=== PATIENT | male | born 1960 | race Caucasian/White ===

== ENCOUNTER 2019-08-24 09:13 | Outpatient (CLI) | payer BC, SELFPAY ==
--- NOTE | 2019-08-24 09:25 | MR_ITS ---
WS: [id number] MRI LEFT SHOULDER HISTORY: LEFT SHOULDER PAIN, TENDONITIS COMPARISON: None available. TECHNIQUE: Multiplanar sequences of the shoulder joint are submitted. Mild AC joint arthritis. Slight encroachment upon the myotendinous insertion. There is fluid in the s ubacromial and subdeltoid bursa. There are tiny loose bodies noted within the joint effusion and the bursa. Complete tear of the supraspinatus tendon with retraction. Retraction is to the level of the superior humeral head and humeral head is high riding. Mild atrophy without edema supraspinatus muscle. Infra spinatus tendon and the subscapularis tendons are intact. Increased signal in the distal subscapulari s tendon from tendinopathy. There is extensive distention of the subscapularis recess. Thinning of the cortex over the humeral head. Biceps tendon is not identified in the bicipital groove . Mild narrowing of the glenohumeral joint. Irregularity involving the superior labrum and there is a subchondral cyst in the superior glenoid. No marrow edema or fracture. MR/MR shoulder LT wo con* [id number] IMPRESSION: 1. Complete tear supraspinatus tendon with retraction to the superior humeral head. 2. Mild atrophy supraspinatus muscle. 3. Distal subscapularis tendinopathy. 4. Torn retracted biceps tendon. The biceps tendon is not identified in the bi cipital groove. 5. Large joint effusion and bursal distention throughout the shoulder. 6. Mild AC joint and glenohumeral joint arthritis.
== END 2019-08-24 09:14 | disposition home or self-care (01) ==
LOC: RADWPI 09:19
PROVIDERS: PCP Family Medicine; Visit Provider Family Medicine
DX: M75.122 Complete rotator cuff tear or rupture of left shoulder, not specified as traumatic (principal); M25.412 Effusion, left shoulder; M19.012 Primary osteoarthritis, left shoulder; M25.512 Pain in left shoulder; M77.9 Enthesopathy, unspecified
CPT/HCPCS: 73221

== ENCOUNTER → 2019-09-14 11:04 | Outpatient (BNVA) | payer BC, SELFPAY | PROVIDERS: PCP Family Medicine; Referring Provider Family Medicine; Visit Provider Specialist | DX: M25.512 Pain in left shoulder (principal) | CPT/HCPCS: 73030 ==

== ENCOUNTER 2019-09-16 10:24 | Outpatient (RCR) | payer BC, SELFPAY | END 2019-09-17 23:59 | disposition home or self-care (01) | LOC: SPT 10:24 | PROVIDERS: PCP Family Medicine; Referring Provider Specialist; Visit Provider Specialist | DX: R20.0 Anesthesia of skin; R20.2 Paresthesia of skin; Z87.891 Personal history of nicotine dependence; M75.102 Unspecified rotator cuff tear or rupture of left shoulder, not specified as traumatic | CPT/HCPCS: 95908; 97161 ==

== ENCOUNTER 2019-09-18 06:00 | Outpatient (RCR) | payer BC, SELFPAY | END 2019-10-18 23:59 | disposition home or self-care (01) | LOC: SPT 06:00 | PROVIDERS: PCP Family Medicine; Referring Provider Specialist; Visit Provider Specialist | DX: M75.102 Unspecified rotator cuff tear or rupture of left shoulder, not specified as traumatic (principal) | CPT/HCPCS: 97110 ==

== ENCOUNTER → 2019-09-24 14:53 | Outpatient (BNVA) | payer BC, SELFPAY | PROVIDERS: PCP Family Medicine; Visit Provider Specialist | DX: M54.12 Radiculopathy, cervical region (principal); R20.0 Anesthesia of skin; R20.2 Paresthesia of skin; S46.819A Strain of other muscles, fascia and tendons at shoulder and upper arm level, unspecified arm, initial encounter; X58.XXXA Exposure to other specified factors, initial encounter; Z87.891 Personal history of nicotine dependence | CPT/HCPCS: 99202 ==

== ENCOUNTER 2019-10-08 10:02 | Outpatient (CLI) | payer BC, SELFPAY ==
--- NOTE | 2019-10-08 10:12 | MR_ITS ---
WS: [id number] MRI CERVICAL SPINE HISTORY: Numbness and tingling in arms COMPARISON: 07/13/2015 Mild RIGHT convex curvature of the cervical spine. Prior anterior cervical fusion from C4 to C7. Vert ebral body osteophytes encroach upon the ventral thecal sac and the foramen. Mild reactive marrow abiodun ma at T2-3. No inferior displacement of cerebellar tonsils. No cord atrophy or signal abnormality. No enlargement of the cervical cord. Craniocervical junction, C1 and C2 relationship, odontoid process and soft tissues are normal. C2-C3: Diffuse disc bulging and osteophytic ridging. Mild encroachment upon the ventral thecal sac an d foramen. C3-C4: Diffuse osteophytic ridging and disc bulging. Mild encroachment upon the ventral thecal sac an d foramen. C4-C5: Large amount of signal abnormality. Mild osteophytic ridging. The extent of the foraminal sten osis and central stenosis is obscured by artifact. C5-C6: Mild osteophytic ridging. Foraminal stenosis is obscured by signal artifact. C6-C7: Mild osteophytic ridging. No significant stenosis identified. C7-T1: No stenosis. T2-3: Moderate sized central disc protrusion with mild contact on the ventral thecal sac. Disc protru mai extends into the foramina bilaterally, RIGHT greater than LEFT. Protrusion is new since the prio r study. Paraspinal soft tissues are partially obscured by significant artifact secondary to the effusion. MR/MR cervical spin wo con* [id number] IMPRESSION: 1. Status post anterior cervical fusion and interbody spacers from C4 through C7. Significant amount of artifact obscuring the foramina and central canal. 2. Moderate size central disc protrusion at T2-3 with mild contact on the vent ral cord. Disc protrusion extends into the foramina bilaterally, RIGHT greater than LEFT.
== END 2019-10-08 10:03 | disposition home or self-care (01) ==
LOC: RADWPI 10:06
PROVIDERS: PCP Family Medicine; Visit Provider Specialist
DX: R20.0 Anesthesia of skin (principal); R20.2 Paresthesia of skin; M43.22 Fusion of spine, cervical region; M51.24 Other intervertebral disc displacement, thoracic region
CPT/HCPCS: 72141

== ENCOUNTER 2019-10-19 06:00 | Outpatient (RCR) | payer BC, SELFPAY | END 2019-11-17 23:59 | disposition home or self-care (01) | LOC: SPT 06:00 | PROVIDERS: PCP Family Medicine; Visit Provider Specialist | DX: M75.102 Unspecified rotator cuff tear or rupture of left shoulder, not specified as traumatic (principal) | CPT/HCPCS: 97110 ==

== ENCOUNTER 2020-05-25 12:57 | Outpatient (CLI) | payer BC, SELFPAY ==
--- NOTE | 2020-05-25 13:03 | MR_ITS ---
WS: [id number] MRI RIGHT SHOULDER NONCONTRAST TECHNIQUE: Sagittal T2, coronal T1, T2 and proton density imaging. Axial gradient PDE imaging. CLINICAL INFORMATION: DJD OF RIGHT SHOULDER, RIGHT SHOULDER PAIN COMPARISON: None. FINDINGS: Moderate degenerative arthritis AC joint. Slight subacromial spurring. Evidence of prior rotator cuff tear with rotator cuff anchors. Rotator cuff anchors degrades images due to susceptibility artifact. Small amount of edema at the AC joint. Chronic thinning of the distal supraspinatus with rotator cuff repair. Tendinopathy in the distal supraspinatus which appears grossly intact. Tiny tear at the dist al insertion. Normal infraspinatus. Normal teres minor. Normal subscapularis. Glenoid labrum appears grossly normal considering artifact limitations. Biceps tendon is not visualiz ed proximally within the bicipital groove likely chronically torn. Distal biceps tendon is visualized MR/MR shoulder RT wo/w con [id number] IMPRESSION: 1. Moderate degenerative arthritis at the AC joint with mild edema. 2. Prior rotator cuff repair with rotator cuff anchors. This degrades images d ue to susceptibility artifact. 3. Chronic thinning of the distal supraspinatus with tendinopathy and a tiny t ear at the distal insertion. 4. Rotator cuff is otherwise intact. 5. Biceps tendon is not visualized in the proximal bicipital groove likely chr onically torn. 6. Glenoid labrum appears grossly normal.
== END 2020-05-25 12:58 | disposition home or self-care (01) ==
LOC: RADWPI 13:00
PROVIDERS: PCP Family Medicine; Visit Provider Family Medicine
DX: M19.011 Primary osteoarthritis, right shoulder (principal); R60.0 Localized edema
CPT/HCPCS: 73223; A9579

== ENCOUNTER 2020-07-04 10:52 | Emergency (ER) | payer BC, SELFPAY ==
--- NOTE | 2020-07-04 10:53 | XR_ITS ---
WS: [id number] LEFT SHOULDER: 3 VIEW(S) TECHNIQUE: Internal and external rotation with Y view. HISTORY: fall/trauma COMPARISON: None available. No fracture or dislocation or soft tissue abnormality. Glenohumeral and AC joints are unremarkable. XR/XR shoulder LT min 2V* [id number] IMPRESSION: Normal LEFT shoulder.
--- NOTE | 2020-07-04 10:53 | W.ED.FALL ---
HPI - Fall General: Chief Complaint: Extremity Injury, Upper Stated Complaint: Left shoulder pain/fall Time Seen by Provider: 07/04/20 10:52 Source: patient Mode of arrival: ambulatory Limitations: no limitations History of Present Illness: HPI Narrative: Patient is a nice 59-year-old male who presents to ED today for evaluation following a slip and fall on ice that occurred yesterday. Patient states he fell directly onto his tailbone and left shoulder and has been experiencing pain since. He states he did strike his head but there was no LOC. He does not complain of a headache. He has no neck or back pain. Patient has been ambulatory without assistance since the fall. Onset (ago): hour(s) Fall from: standing Fall witnessed: no Place fall occurred: home Loss of consciousness: None Prolonged down time: no Symptoms prior to fall: none Context: tripped/slipped Location of injury: back ( tailbone ) Location of injury - extremities: Left: shoulder Associated symptoms-after fall: Denies abdominal pain, chest pain, confusion, difficulty walking, headache(s), hematuria or neck pain Review of Systems Const: Denies: fever(s) Eyes: Denies: change in vision, blurry vision, floaters or seeing flashes Card: Denies: chest pain Resp: Denies: dyspnea GI: Denies: abdominal pain, nausea or vomiting : Denies: flank pain or hematuria Musc: Reports: back pain ( tailbone pain), joint pain (L shoulder) and limited range of motion (L shoulder); Denies: neck pain, extremity pain, extremity swelling, joint swelling or joint redness Neuro: Denies: headache(s), numbness in extremities, weakness in extremities, sensory changes, lack of coordination, difficulty walking, frequent falls, dizziness, confusion, Slurred speech present or difficulty communicating thoughts PFSH ED PFSH: Surgical History History of carpal tunnel release Social History Smoking and tobacco status: former smoker Alcohol intake: current Alcohol intake frequency: few times a month Alcohol type: beer Physical Exam Const: COMMON NORMALS: no acute distress, average body habitus, patient oriented x3, no limitations, healthy appearing, alert and well nourished ORIENTATION/CONSCIOUSNESS: Yes oriented to person, Yes oriented to place and Yes oriented to time HENMT: COMMON NORMALS: normocephalic and atraumatic HEAD & SCALP: normal to inspection, normocephalic and atraumatic Eye: COMMON NORMALS: Equal, round and reactive pupils present GENERAL EYE: appearance normal, both eyes and all related structures PUPIL: Yes Equal, round and reactive pupils present Neck/C-Spine: COMMON NORMALS: full ROM CERVICAL SPINE: Yes cervical ROM normal, No Cervical spine tenderness and No Paracervical muscle tenderness Chest: COMMONS NORMALS: normal inspection of the chest and normal palpation of entire chest wall Resp: COMMON NORMALS: normal respiratory effort and clear to auscultation bilaterally AUSCULTATION: clear to auscultation bilaterally Cardio: COMMON NORMALS: regular rate and regular rhythm RATE: regular rate RHYTHM: regular rhythm Back/Pelvis: COMMON NORMALS: thoracic and lumbar spine normal to inspection, no thoracic nor lumbar tenderness and thoraco-lumbar ROM normal THORACIC SPINE/UPPER BACK: No thoracic spinal tenderness LUMBAR SPINE/LOWER BACK: No lumbar spinal tenderness SACRUM: tenderness COCCYX: Coccyx tenderness present Extremity: GENERAL: Yes normal exam except as noted OTHER: TTP L anterior glenohumeral joint. No obvious deformity of dislocation noted. Extremity NV intact. He has limited ROM secondary to pain. Neuro: SARAH COMA SCALE: document GCS findings Hastings coma scale eye opening: Spontaneous Hastings coma scale verbal response: Orientated Hastings coma scale motor response: Obey commands Sarah coma scale total score: 15 COMMON NORMALS: patient oriented x3, CN's II-XII intact bilaterally, no sensory deficits noted and gait normal SENSORIUM/ORIENTATION: Yes alert, Yes oriented to person, Yes oriented to place and Yes oriented to time Skin: COMMON NORMALS: no rashes or lesions noted GENERAL SKIN EXAM: no rashes or lesions noted Course Vital Signs: Vital signs: Vital Signs Temperature 98.2 F 07/04/20 10:58 Pulse Rate 88 07/04/20 10:58 Respiratory Rate 16 07/04/20 10:58 Blood Pressure 135/97 07/04/20 10:58 Pulse Oximetry 100 07/04/20 10:58 MDM - Fall MDM Narrative: Medical decision making narrative: Patient's XRs are normal here. He states he has a previous rotator cuff tear in that shoulder and believes he may have reinjured that. He states he will follow-up with PCP Dr. Encarnacion for further evaluation. Discussed Dr. Encarnacion could order outpatient MRI if he felt indicated. He states he has seen Dr. Andrews previously but does not wish to follow-up with her-states he has an orthopedic provider at [facility] he would like to see. Imaging Data^: XR sacrum/coccyx: Radiologist's impression: [place] [address] XRay Report Signed Patient: Efe Tamayo Unit #: [id number] : 1960 Age/Sex: 59 / M ADM Date: 07/04/20 Loc: ER Room/Bed: Attending Dr: Ordering Provider/Ordering MD: Yamilex Garcia Date of Service: 07/04/20 Procedure(s): XR sacrum coccyx min 2V 43075 Accession Number(s): [id number] Report Number: [id number] WS: [id number] SACRUM AND COCCYX TECHNIQUE: AP angled and lateral views. HISTORY: fall COMPARISON: None available. Normal sacral coccygeal alignment. No Symphyseal widening. No fracture or malalignment. Visualized bony structures are unremarkable. XR/XR sacrum coccyx min 2V [id number] IMPRESSION: Negative sacrum and coccyx. Dictated By: Claire Garnica DO Signed By: Claire Garnica DO Signed Date/Time: 07/04/20 1139 DD/ 1138 XR L shoulder: Radiologist's impression: [employer] [address] XRay Report Signed Patient: Efe Tamayoit #: [id number] : 1960cct#:[id number] Age/Sex: 59 / MADM Date: 07/04/20 Loc: ERRoom/Bed: Attending Dr: Ordering Provider/Ordering MD: Yamilex Garcia Date of Service: 07/04/20 Procedure(s): XR shoulder LT min 2V* [id number] Accession Number(s): [id number] Report Number: [id number] WS: [id number] LEFT SHOULDER: 3 VIEW(S) TECHNIQUE: Internal and external rotation with Y view. HISTORY: fall/trauma COMPARISON: None available. No fracture or dislocation or soft tissue abnormality. Glenohumeral and AC joints are unremarkable. XR/XR shoulder LT min 2V* [id number] IMPRESSION: Normal LEFT shoulder. Dictated By:Claire Garnica DO Signed By:Claire Garnica DOSigned Date/Time:07/04/20 1140 DD/ 1139 Discharge Plan Discharge Patient Disposition: Home Clinical Impression: Fall from slipping on ice Qualifiers: Encounter type: initial encounter Qualified Code(s): W00.9XXA - Unspecified fall due to ice and snow, initial encounter Contusion of left shoulder Qualifiers: Encounter type: initial encounter Qualified Code(s): S40.012A - Contusion of left shoulder, initial encounter Condition: Stable Prescriptions: No Action gabapentin 300 mg capsule See Rx Instructions .ROUTE .COMPLEX RF: 0 Discharge Orders: Discharge ED (Routine); Ordered 07/04/20 Ordered By: Yamilex Garcia Referrals: Balta Encarnacion DO [Primary Care Provider] - Patient Instructions: Opioid Safety Activity Restrictions/Additional Instructions: [facility] [employer] is committed to fighting the nationwide opiate epidemic. We are providing ALL patients with information regarding opiate safety. If you received opiate pain medication during your stay or if you received a prescription for opiate pain medication-please review this handout. If not, you may disregard. Thank you. Stand Alone Forms: Work/School Release Coding Level of Care Code ED Manager Scheduling for Ana Luisa Fwd Exam Comprehensive
[2020-07-04 10:58] VITALS: BP 135/97; PULSE 88; RESP 16; TEMP 36.8; O2SAT 100; BMI 24.2
--- NOTE | 2020-07-04 11:14 | XR_ITS ---
WS: [id number] SACRUM AND COCCYX TECHNIQUE: AP angled and lateral views. HISTORY: fall COMPARISON: None available. Normal sacral coccygeal alignment. No Symphyseal widening. No fracture or malalignment. Visualized bony structures are unremarkable. XR/XR sacrum coccyx min 2V [id number] IMPRESSION: Negative sacrum and coccyx.
== END 2020-07-04 12:04 | disposition home or self-care (01) ==
PROVIDERS: Emergency Provider Physician Assistant; PCP Family Medicine
DX: S40.012A Contusion of left shoulder, initial encounter (principal); W00.0XXA Fall on same level due to ice and snow, initial encounter; Z87.891 Personal history of nicotine dependence
CPT/HCPCS: 72220; 73030; 99282

== ENCOUNTER 2020-07-12 07:55 | Outpatient (CLI) | payer BC, SELFPAY ==
--- NOTE | 2020-07-12 08:04 | MR_ITS ---
WS: [id number] MRI LEFT SHOULDER HISTORY: SHOULDER PAIN, LEFT COMPARISON: 08/24/2019 TECHNIQUE: Multiplanar sequences of the shoulder joint are submitted. Moderate AC joint hypertrophy. Soft tissue and bone encroachment upon the rotator cuff. There is a la rge amount of fluid in the subacromial and subdeltoid bursa. Small loose bodies and fragments are wit hin the joint effusion. No os acromion. There is a large amount of fluid surrounding the humeral head and extending into the axillary pouch. Distention of the subscapularis recess and bursa. Small loose bodies are present within the fluid. Th e extent of the fluid has increased since the prior study. Severely high riding humeral head consiste nt with rotator cuff tears. Distal supraspinatus tendon is completely torn and retracted just medial to the glenoid. Moderate atrophy of the supraspinatus muscle. Distal subscapularis tendon is not iden tified. Thickening of the distal infraspinatus tendon. Biceps tendon is not identified in the bicipit al groove. Torn and dislocated medially displaced biceps tendon is suspected. Subchondral cystic changes and cortical irregularity involving the superior lateral humeral head. Int rasubstance degeneration in the labrum but no full-thickness tear. MR/MR shoulder LT wo con* [id number] IMPRESSION: 1. Large joint effusion with numerous loose bodies and densities within the fl uid surrounds the humeral head. Additional increased fluid with loose bodies in the subacromial and subdeltoid bursa. Fluid and loose bodies have progressed s bree the prior study. 2. Completely torn and retracted supraspinatus tendon with moderate atrophy. 3. Torn subscapularis tendon with associated dislocated biceps tendon. 4. Moderate AC joint arthritis.
== END 2020-07-12 07:56 | disposition home or self-care (01) ==
LOC: RADWPI 07:58
PROVIDERS: PCP Family Medicine; Visit Provider Family Medicine
DX: M13.812 Other specified arthritis, left shoulder (principal); S46.912A Strain of unspecified muscle, fascia and tendon at shoulder and upper arm level, left arm, initial encounter; X58.XXXA Exposure to other specified factors, initial encounter; M25.412 Effusion, left shoulder
CPT/HCPCS: 73221

== ENCOUNTER 2020-10-02 03:05 | Emergency (ER) | payer BC, SELFPAY ==
[2020-10-02 03:09] VITALS: BP 125/79; PULSE 82; RESP 16; TEMP 37.3; O2SAT 93; BMI 20.9
[2020-10-02] MEDS: famotidine 20 mg/2 mL INJ IVP (03:53)
[2020-10-02 03:55] LABS: Basophils % 0.2 %; Eosinophils # 0.1 10^3/uL (0.0-0.8); Eosinophils % 1.1 %; Hematocrit 37.8 % (42.0-52.0); Hemoglobin 12.4 g/dL (11.7-16.6); Lymphocytes # 0.9 10^3/uL (0.8-4.8); Lymphocytes % 7.7 %; Mean Corpuscular HGB Conc 32.8 g/dL (30.0-36.0); Mean Corpuscular Hemoglobin 32.5 pg (28.0-34.0); Mean Platelet Volume 9.7 fL (7.4-10.4); Monocytes # 0.4 10^3/uL (0.2-0.9); Monocytes % 3.6 %; Neutrophils # 9.95 10^3/uL (1.8-7.7); Nucleated Red Blood Cells % 0 %; Platelet Count 364 10^3/cmm (130-400); Red Blood Count 3.82 10^6/uL (4.1-5.3); Red Cell Distribution Width 11.9 % (12.1-15.1); White Blood Count 11.4 10^3/uL (4.0-10.0)
[2020-10-02] MEDS: diphenhydrAMINE 50 mg/mL SDV 1mL IVP (03:55)
[2020-10-02] MEDS: LORazepam 2 mg/mL INJ 1 mL 0.5 MG IVP (03:58)
[2020-10-02 04:00] VITALS: BP 134/92; PULSE 101; RESP 19; O2SAT 98
[2020-10-02 04:10] LABS: Alanine Aminotransferase 7 U/L (0-41); Albumin Level 4.3 g/dL (3.5-5.2); Alkaline Phosphatase 75 IU/L (40-130); Anion Gap 16.7 (5-19); Aspartate Amino Transferase 15 U/L (0-40); Blood Urea Nitrogen 9 mg/dL (6-20); C Reactive Protein 108.9 mg/L (0.0-4.9); Calcium 8.8 mg/dL (8.5-10.5); Carbon Dioxide 27 mmol/L (22-29); Chloride 100 mmol/L (98-107); Globulin 2.8 g/dL (1.3-4.6); Glomerular Filtration Rate 86.7 mL/min (90-130); Glucose 132 mg/dL (65-115); Osmolality Calculated 289 mOsm/kg (285-295); Potassium 4.7 mmol/L (3.5-5.1); Sodium 139 mmol/L (136-145); Total Bilirubin 0.6 mg/dL (0.15-1.2); Total Protein 7.1 g/dL (6.6-8.7)
--- NOTE | 2020-10-02 04:43 | ED_ITS ---
HPI - Allergic Reaction General: Chief complaint: Allergic Reaction Stated complaint: POSS ALLERGIC REACTION Time Seen by Provider: 10/02/20 03:26 History of Present Illness: HPI narrative: 59-year-old male who had a recent left shoulder arthroplasty. His medication regimen has not changed, except he has been taking 2 baby aspirin daily. 3 days ago, he began to get urticaria starting with his right wrist in his low back. They have spread significantly to encompass both of his legs, his trunk, and upper extremities as well. His left shoulder surgical incision seems to be spared. No fever. No drainage. No vomiting. He has noticed first his lower lip and then his upper lip has swollen. He denies significant trouble breathing. 2 days ago, he was seen at his primary care physician's office, and given a shot of steroid . It has not seemed to help. MD complaint: allergic reaction, hives and facial swelling Onset (ago): day(s) (2-3) Exposure: unknown and medication (Possibly aspirin) Associated symptoms: Reports lip swelling, nausea and rash; Deny difficulty breathing, dysphagia, hoarseness, tongue swelling or vomiting Severity: moderate Treatment prior to arrival: benadryl Review of Systems Const: Denies: fever(s) or chills Eyes: Reports: other (Lid swelling) ENMT: Denies: hoarseness Card: Denies: chest pain Resp: Denies: dyspnea, productive cough or wheezing GI: Reports: nausea; Denies: vomiting or dysphagia All/Imm: Denies: tongue swelling PFSH ED PFSH: Surgical History History of carpal tunnel release Social History Smoking and tobacco status: former smoker Alcohol intake: current Alcohol intake frequency: few times a month Alcohol type: beer Physical Exam Const: GENERAL APPEARANCE: well developed ORIENTATION/CONSCIOUSNESS: Yes oriented to person, Yes oriented to place and Yes oriented to time HENMT: COMMON NORMALS: normocephalic, external ears normal and Normal external nose present HEAD & SCALP: normocephalic FACE & SINUS: normal facial exam NOSE: Normal external nose present and No nasal discharge present EXTERNAL EAR: Yes external ears normal MOUTH: tongue normal and lip abnormal (Upper lip significantly swollen); no drooling and no muffled voice THROAT: posterior oropharynx normal; no peritonsillar mass Eye: COMMON NORMALS: Equal, round and reactive pupils present, EOMs intact bilaterally and conjunctivae normal EYELID: eyelid abnormality (Swelling left greater than right upper lid) CONJUNCTIVA: Yes conjunctivae normal PUPIL: Yes Equal, round and reactive pupils present Neck/C-Spine: GENERAL: No tracheal deviation Chest: COMMONS NORMALS: normal inspection of the chest CHEST: No tenderness Resp: COMMON NORMALS: clear to auscultation bilaterally EFFORT & INSPECTION: No tachypneic, No respiratory distress, No retractions, No uses accessory muscles and No tracheal deviation AUSCULTATION: clear to auscultation bilaterally, no rhonchi, no wheezes and lung sounds not diminished Cardio: COMMON NORMALS: regular rate and regular rhythm RATE: regular rate RHYTHM: regular rhythm HEART SOUNDS: no murmurs PERIPHERAL PULSES: radial pulses present GI: AUSCULTATION: No Hyperactive bowel sounds present and No Hypoactive bowel sounds present PALPATION: No Guarding due to palpation present (GI) and No Rigid due to palpation PERCUSSION: no dullness to percussion and no tympanic to percussion Neuro: SENSORIUM/ORIENTATION: Yes oriented to person, Yes oriented to place and Yes oriented to time Psych: COMMON NORMALS: mental status grossly normal Skin: NARRATIVE SKIN EXAM: Widespread urticaria present on posterior neck, trunk, both lower extremities, mainly right upper extremity Course Vital Signs: Vital signs: Vital Signs Temperature 99.1 F 10/02/20 03:09 Pulse Rate 91 10/02/20 05:14 Respiratory Rate 19 H 10/02/20 05:14 Blood Pressure 134/92 10/02/20 04:00 Pulse Oximetry 99 10/02/20 05:14 MDM - Allergic Reaction MDM Narrative: Medical decision making narrative: Patient with significant urticaria and lip swelling. He has some eyelid swelling as well. Lip is significantly improved following administration of IV Benadryl, Pepcid, Solu- Medrol. Itching improved following IV Ativan. He will be allowed discharge, to continue Pepcid, Benadryl, Zyrtec, and a Medrol Dosepak. Aspirin/salicylate is suspicious, versus stress urticaria. Lab Data: Labs: Lab Results 10/02/20 10/02/20 Range/Units 03:46 03:46 WBC 11.4 H (4.0-10.0) 10^3/ uL RBC 3.82 L (4.1-5.3) 10^6/u L Hgb 12.4 (11.7-16.6) g/dL Hct 37.8 L (42.0-52.0) % MCV 99.0 H (80-94) fL MCH 32.5 (28.0-34.0) pg MCHC 32.8 (30.0-36.0) g/dL RDW 11.9 L (12.1-15.1) % Plt Count 364 (130-400) 10^3/c mm MPV 9.7 (7.4-10.4) fL Neut % (Auto) 87.0 % Lymph % (Auto) 7.7 % [place] % (Auto) 3.6 % Eos % (Auto) 1.1 % Baso % (Auto) 0.2 % Neut # (Auto) 9.95 H (1.8-7.7) 10^3/u L Lymph # (Auto) 0.9 (0.8-4.8) 10^3/u L [place] # (Auto) 0.4 (0.2-0.9) 10^3/u L Eos # (Auto) 0.1 (0.0-0.8) 10^3/u L Baso # (Auto) 0.0 (0.0-0.1) 10^3/u L Nucleated RBC % (a uto) 0 % Nucleated RBCs # 0.0 /100WBC Sodium 139 (136-145) mmol/L Potassium 4.7 (3.5-5.1) mmol/L Chloride 100 (98-107) mmol/L Carbon Dioxide 27 (22-29) mmol/L Anion Gap 16.7 (5-19) BUN 9 (6-20) mg/dL Creatinine 0.9 (0.7-1.2) mg/dL GFR Calculation 86.7 L (90-130) mL/min Glucose 132 H (65-115) mg/dL Calculated Osmolal ity 289 (285-295) mOsm/k g Calcium 8.8 (8.5-10.5) mg/dL Total Bilirubin 0.6 (0.15-1.2) mg/dL AST 15 (0-40) U/L ALT 7 (0-41) U/L Alkaline Phosphata se 75 (40-130) IU/L C-Reactive Protein 108.9 H (0.0-4.9) mg/L Total Protein 7.1 (6.6-8.7) g/dL Albumin 4.3 (3.5-5.2) g/dL Globulin 2.8 (1.3-4.6) g/dL Discharge Plan Discharge Patient Disposition: Home Clinical Impression: Allergic reaction Qualifiers: Encounter type: initial encounter Qualified Code(s): T78.40XA - Allergy, unspecified, initial encounter Condition: Stable Prescriptions: New Pepcid 20 mg tablet 20 mg PO BID 7 Days Qty: 14 RF: 0 Medrol (Simeon) 4 mg tablets,dose pack See Rx Instructions PO .COMPLEX Qty: 21 RF: 0 Zyrtec 10 mg tablet 10 mg PO DAILY Qty: 10 RF: 0 No Action gabapentin 300 mg capsule See Rx Instructions .ROUTE .COMPLEX RF: 0 Discharge Orders: Discharge ED (Routine); Ordered 10/02/20 Ordered By: Gabriele Dodd Referrals: Balta Encarnacion DO [Primary Care Provider] - 4-7 days Discharge Diet: Advance as tolerated Discharge Activity: Limit activity as instructed Patient Instructions: Allergic Reaction Activity Restrictions/Additional Instructions: Keep taking Benadryl 25 to 50 mg every 6 hours while awake for the next 2 to 3 days. Other medications as prescribed. Return to the ER for worsening lip swe lling, tongue swelling, hoarseness in the voice, trouble breathing, worsening rash despite treatment, any other concerning symptoms. Coding Level of Care Code ED Multiple Punch Press Operator for Ana Luisa Fwd Exam Comprehensive
[2020-10-02 05:14] VITALS: PULSE 91; RESP 19; O2SAT 99
== END 2020-10-02 05:14 | disposition home or self-care (01) ==
PROVIDERS: Emergency Provider Emergency Medicine; PCP Family Medicine
DX: T78.40XA Allergy, unspecified, initial encounter (principal); Z87.891 Personal history of nicotine dependence
CPT/HCPCS: 80053; 85025; 86140; 96374; 96375; 99283; J1200; J2060; J2930; J3490

== ENCOUNTER 2021-01-20 10:32 | Outpatient (CLI) | payer BC, SELFPAY ==
--- NOTE | 2021-01-20 11:00 | MR_ITS ---
WS: [id number] MRI LUMBAR SPINE NONCONTRAST TECHNIQUE: Sagittal T1, T2 and STIR imaging. Axial T1 and T2 imaging. CLINICAL INFORMATION: LBP W RADICULOPATHY; DDD COMPARISON: None. FINDINGS: Mild lumbar curve. No acute compression. No high-grade central canal stenosis. L1-L2: Normal. L2-L3: Mild disc bulging with slight effacement of ventral thecal sac. Mild narrowing of the right haskins barticular recess. Small bilateral foraminal protrusions with mild bilateral foraminal narrowing. Mil d facet arthropathy. L3-L4: Mild disc bulging with moderate central canal stenosis. Impingement on the traversing right gr eater than left L4 nerve roots. Moderate right and mild left foraminal narrowing. Mild facet arthropa thy. L4-L5: Mild disc bulging with slight effacement of the ventral thecal sac. Mild central canal stenosi s. Mild right foraminal narrowing. Left foramen is patent. L5-S1: Mild disc bulging with osteophytic ridging. Eccentric disc bulging encroaches on the far exiti ng right greater than left L5 nerve roots. Spinal canal is patent. Mild to moderate facet arthropathy . Visualized pelvic bony structures: Normal. Paravertebral soft tissues: Normal. MR/MR lumbar spine wo con* [id number] IMPRESSION: 1. Mild lumbar curve. No acute compression. No high-grade central canal stenos is. 2. Small bilateral foraminal protrusions at L2-3 contacts the exiting L2 nerve roots bilaterally. 3. Moderate central canal stenosis L3-4 due to mild disc bulging with impingem ent on the traversing right L4 nerve root. Moderate right foraminal narrowing i mpinges the exiting right L3 nerve root. 4. Mild central canal stenosis L4-5 with mild right L4-5 foraminal narrowing. 5. Eccentric disc bulge L5-S1 encroaches on the far exiting right L5 nerve tate t. 6. Mild to moderate facet arthropathy worse at L2-3, L3-4, and L5-1.
== END 2021-01-20 10:33 | disposition home or self-care (01) ==
PROVIDERS: PCP Family Medicine; Visit Provider Family Medicine
DX: M54.16 Radiculopathy, lumbar region (principal); M51.36 Other intervertebral disc degeneration, lumbar region; M47.816 Spondylosis without myelopathy or radiculopathy, lumbar region; M51.27 Other intervertebral disc displacement, lumbosacral region; M48.061 Spinal stenosis, lumbar region without neurogenic claudication; M51.26 Other intervertebral disc displacement, lumbar region
CPT/HCPCS: 72148

== ENCOUNTER 2021-02-27 08:00 | Outpatient (CLI) | payer BC, SELFPAY ==
--- NOTE | 2021-02-27 08:00 | MR_ITS ---
WS: [id number] MRI RIGHT SHOULDER NONCONTRAST TECHNIQUE: Sagittal T2, coronal T1, T2 and proton density imaging. Axial gradient PDE imaging. CLINICAL INFORMATION: sHOULDER PAIN, RIGHT; TENDONITIS COMPARISON: May 25, 2020 FINDINGS: Prior rotator cuff repair with rotator cuff anchors. Some images are degraded due to susceptibility a rtifact from anchors. Biceps tendon is not visualized in the proximal bicipital groove consistent wit h chronic tear unchanged from previous. Moderate degenerative arthritis at the AC joint with mild elias nsloping acromion. Narrowing of the subacromial space. Fluid signal with supraspinatus tear at the in sertion. This appears slightly progressed compared to previous. Chronic thinning of the distal supras pinatus. No tendon retraction. Tiny amount of subacromial/subdeltoid fluid. Chronic thinning of the infraspinatus which appears intact. Tendinopathy in the supraspinatus and inf raspinatus. Normal teres minor. Normal subscapularis. Degenerative fraying of the glenoid labrum whic h appears grossly intact. Normal bone marrow signal. MR/MR shoulder RT wo con* [id number] IMPRESSION: 1. Moderate degenerative arthritis AC joint with mild edema and downsloping ac romion. Narrowing of the subacromial space. 2. Small fluid signal tear at the supraspinatus insertion appears progressed c ompared to previous. No tendon retraction. 3. Chronic thinning of the infraspinatus with tendinopathy in the supraspinatu s and infraspinatus. 4. Rotator cuff is otherwise intact. 5. Biceps tendon is absent in the bicipital groove likely chronically torn unc hanged from previous. 6. Prior postoperative changes rotator cuff anchors degrades some images uncha nged from previous. 7. Glenoid labrum appears grossly normal.
== END 2021-02-27 08:01 | disposition home or self-care (01) ==
PROVIDERS: PCP Family Medicine; Visit Provider Family Medicine
DX: M77.9 Enthesopathy, unspecified (principal); M19.011 Primary osteoarthritis, right shoulder; M75.101 Unspecified rotator cuff tear or rupture of right shoulder, not specified as traumatic
CPT/HCPCS: 73221

== ENCOUNTER 2021-10-26 14:42 | Outpatient (CLI) | payer OTHER, SELFPAY ==
--- NOTE | 2021-10-26 14:54 | XR_ITS ---
WS: [id number] Exam: XR chest 2V* [id number] Date/Time of Exam: 10/26/2021 2:57 PM Reason For Exam: LUNG NODULE Comparison 09/23/2008. The lungs are clear and fully expanded. Normal cardiomediastinal silhouette. Large calcified granulom a noted just below the aortic arch on the left. No pleural effusions. Partially visualized left rever se shoulder prosthesis. Anchoring screws in the right humeral head. XR/XR chest 2V* [id number] IMPRESSION: 1. No acute cardiopulmonary finding.
== END 2021-10-26 14:43 | disposition home or self-care (01) ==
PROVIDERS: PCP Family Medicine; Visit Provider Family Medicine
DX: R91.8 Other nonspecific abnormal finding of lung field (principal)
CPT/HCPCS: 71046

== ENCOUNTER → 2021-11-06 14:59 | Outpatient (BNVA) | payer OTHER, SELFPAY | PROVIDERS: PCP Family Medicine; Visit Provider Family Medicine | DX: Z00.00 Encounter for general adult medical examination without abnormal findings (principal) | CPT/HCPCS: 80053; 80061 ==

== ENCOUNTER → 2023-04-30 10:16 | Outpatient (BNVA) | payer MEDICARE, SELFPAY | PROVIDERS: PCP Family Medicine; Visit Provider Family Medicine | DX: Z00.00 Encounter for general adult medical examination without abnormal findings (principal); M48.02 Spinal stenosis, cervical region; Z13.6 Encounter for screening for cardiovascular disorders; Z98.890 Other specified postprocedural states; M25.511 Pain in right shoulder; M19.012 Primary osteoarthritis, left shoulder | CPT/HCPCS: 80053; 80061; 82607 ==

== ENCOUNTER 2023-05-21 09:09 | Outpatient (CLI) | payer MEDICARE, SELFPAY ==
--- NOTE | 2023-05-21 09:30 | MR_ITS ---
WS: [id number] MRI RIGHT SHOULDER NONCONTRAST TECHNIQUE: Sagittal T2, coronal T1, T2 and proton density imaging. Axial gradient PDE imaging. CLINICAL INFORMATION: Z98.890 - Other specified postprocedural states COMPARISON: MRI 2020 FINDINGS: Prior postoperative changes degrade some images. Moderate degenerative arthritis AC joint. Mild narro wing of the subacromial space. Chronic thinning of the distal supraspinatus. Infraspinatus appears in tact. Prior repair of the supraspinatus appears intact. Fluid signal at the far anterior superior sup raspinatus insertion unchanged. Normal teres minor. Chronic thinning of the subscapularis unchanged from previous. Biceps tendon not visualized within the bicipital groove unchanged from previous. Moderate degenerative narrowing of th e glenohumeral articulation. Glenoid labrum appears grossly normal. No other suspicious findings. IMPRESSION: 1. Prior postoperative changes rotator cuff repair. No evidence of new or recurrent tear compared to 2020. 2. Moderate degenerative arthritis of the AC joint with fluid and edema. 3. Chronic thinning of the distal supraspinatus which appears intact distally previously repaired. 4. Chronic thinning of the subscapularis is unchanged. 5. Biceps tendon not visualized within the bicipital groove unchanged.
== END 2023-05-21 09:10 | disposition home or self-care (01) ==
LOC: RAD 09:10
PROVIDERS: PCP Family Medicine; Visit Provider Family Medicine
DX: Z98.890 Other specified postprocedural states (principal); M25.511 Pain in right shoulder; M19.011 Primary osteoarthritis, right shoulder
CPT/HCPCS: 73221

== ENCOUNTER 2024-07-16 13:52 | Outpatient (CLI) | payer MEDICARE, SELFPAY ==
--- NOTE | 2024-07-16 13:59 | XR_ITS ---
WS: [id number] Chest 2 views, 07/16/2024 Clinical Data: R91.1 - Solitary pulmonary nodule Comparison: Two-view chest, 10/26/2021 Findings: No nodules, masses or effusions are seen. The heart is normal. The pulmonary vascularity is not increased. No pneumonia or pneumothorax is seen. There is a calcified granuloma in the left tracheobronchial region. 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 There are orthopedic anchors in the right humeral head. XR/XR chest 2V* [id number] Impression: Negative chest.
== END 2024-07-16 13:53 | disposition home or self-care (01) ==
PROVIDERS: PCP Family Medicine; Visit Provider Family Medicine
DX: R91.1 Solitary pulmonary nodule (principal); Z00.00 Encounter for general adult medical examination without abnormal findings; J84.10 Pulmonary fibrosis, unspecified; Z96.89 Presence of other specified functional implants
CPT/HCPCS: 71046; 80053; 80061; G0103

== ENCOUNTER 2024-07-21 13:34 | Outpatient (CLI) | payer MEDICARE, SELFPAY | END 2024-07-21 13:35 | disposition home or self-care (01) | LOC: LAB 13:40 | PROVIDERS: PCP Family Medicine; Visit Provider Family Medicine | DX: R97.20 Elevated prostate specific antigen [PSA] (principal) | CPT/HCPCS: 36415; 84153 ==

== ENCOUNTER 2025-02-05 13:20 | Emergency (ER) | payer MEDICARE, SELFPAY ==
--- OUTSIDE RECORDS SUMMARY | 2025-02-05 13:24 | XMS_ITS | Clinical Summary ---
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 g/dL 01/13/2025 1:44 PM CDT [facility] [place] ALBUMIN 4.3 3.5 - 5.2 g/dL 01/13/2025 1:44 PM CDT [facility] BILIRUBIN TOTAL 0.6 0.0 - 1.0 mg/dL 01/13/2025 1:44 PM CDT [facility] ALKALINE PHOSPHATASE 74 40 - 129 U/L 01/13/2025 1:44 PM CDT [facility] AST 19 <=41 U/L 01/13/2025 1:44 PM CDT [facility] ALT 19 <=41 U/L 01/13/2025 1:44 PM T [facility] GFR >60 >=60 mL/min/1.7 3 sq meter 01/13/2025 1:44 PM CDT [facility] Comment:eGFR calculated with 2020 CKD-EPI equation. Vegetarian diet, extremely high or low muscle mass, and may affect results. Cystatin C with Glomerular Filtration Rate is a suitable alternative for these patients. ANION GAP 10 9 - 20 mmol/L 01/13/2025 1:44 PM CDT [facility] Blood Collection / Unknown 01/13/2025 12:44 PM CDT 01/13/2025 12:44 PM CDT Chrissie Wiggins MD CHEMISTRY ORDERABLES Final Resul t [facility] IA# [id number] [address] [place] [address] * XR SHOULDER 2+ VW RIGHT (11/17/2024 11:22 AM CDT) Anatomical Region Laterality Modality Upper Extremity Computed Radiogr aphy Narrative 11/18/2024 7:11 AM CDT X-ray of the right shoulder: Two metallic sutures in the proximal humerus. Good maintenance of glenoid joint space. us Francisco Grant MD DIAGNOSTIC IMAGING JIA BETTIERED Final Result from Last 3 Months Insurance [facility] * Guarantor: EFE BTULER Account Type Relation to Patient Date of Phone Billing Address Personal/Family [address] [place] [address] RX [employer] Medicare Part D RX [facility], [facility] Commercial Care Teams Quality Assurance Monitor Body Relationship Specialty Start Date End Date Balta Encarnacion DO [address] [place] [address] PCP - General 08/20/20
--- OUTSIDE RECORDS SUMMARY | 2025-02-05 13:24 | XMS_ITS | Encounter Summary ---
Author Organization [facility] Address [address] [place] [address] Care Team Providers Care Finishing Wire Sawyer Name Role Phone Shashank, Balta Blackburn DO Primary Care Provider [phone] Encounter Details Date Type Department Care Team (Latest Contact Info) Description 09/07/2020 Ancillary Orders [facility] Pre Admission [facility] Orthopedic [facility] [address] [place] [address] Neal Hagan MD [address] [place] [address] Preoperative testing Social History Tobacco Use Types Packs/Day Years Used Date Smoking Tobacco: Former Cigarettes 1 30 2009 Smokeless Tobacco: Never Alcohol Use Standard Drinks/Week Comments Yes 4 (1 standard drink = 0.6 oz pur e alcohol) Sex and Gender Information Value Date Recorded Sex Assigned at Not on file Legal Sex Male 10:51 AM CDT Gender Identity Not on file Sexual Orientation Not on file COVID-19 Exposure Response Date Recorded In the last month, have you been in contact with someone who was confirmed or suspected to have Coronavirus / COVID-19? No / Unsure 09/07/2020 12:47 PM CDT documented as of this encounter Plan of Treatment Not on file documented as of this encounter Results * XR CHEST PA AND LATERAL 2 VW (09/07/2020 1:22 PM CDT) Anatomical Region Laterality Modality Chest Computed Radiogr aphy 09/07/2020 1:23 PM CDT Impressions 09/08/2020 11:38 AM CDT IMPRESSION: Please see below. Exam: XR CHEST PA AND LATERAL 2 VW Date/Time of Exam: 09/07/2020 1:22 PM Reason For Exam: See Diagnosis. Diagnosis: Preoperative testing. Findings: No active pulmonary disease. No pleural effusion. Calcified lymph nodes seen in the mediastinum. Prior right shoulder surgery. Impression: No active cardiopulmonary disease. [id number] Narrative Procedure Note Leonardo Olivera MD - 09/08/2020 IMPRESSION: Please see below. Exam: XR CHEST PA AND LATERAL 2 VW Date/Time of Exam: 09/07/2020 1:22 PM Reason For Exam: See Diagnosis. Diagnosis: Preoperative testing. Findings: No active pulmonary disease. No pleural effusion. Calcified lymph nodes seen in the mediastinum. Prior right shoulder surgery. Impression: No active cardiopulmonary disease. [id number] us Neal Hagan MD DIAGNOSTIC IMAGING ORDERABLES F inal Result documented in this encounter Visit Diagnoses Diagnosis Preoperative testing Preoperative examination, unspecified Preoperative testing Preoperative examination, unspecified documented in this encounter Care Teams Finishing Wire Sawyer Relationship Specialty Start Date End Date Balta Encarnacion DO [address] [place] [id number] PCP - General Family Practice 04/05/20 documented as of this encounter
--- OUTSIDE RECORDS SUMMARY | 2025-02-05 13:24 | XMS_ITS | Clinical Summary ---
Author Organization [facility] Address [address] [facility] [address] Care Team Providers Care Cso Name Role Phone Balta Encarnacion DO Primary Care Provider [phone] Allergies No known active allergies Medications gabapentin (NEURONTIN) 300 mg capsule Take 300 mg by mouth 2 times daily. 300mg Q AM, 600mg Q PM 12/15/2019 Active ibuprofen (MOTRIN) 800 mg tablet Take 1 Tablet (800 mg) by mouth every 8 hours with food. 30 Tablet 6 04/29/2020 Active diphenhydrAMINE -acetaminophen (Tylenol PM Extra Strength) 25-500 mg Tablet Take 1 Tablet by mouth nightly as needed for Insomnia. Active acetaminophen (TYLENOL ARTHRITIS) 650 mg Extended Release tablet Take 650 mg by mouth every 6 hours as needed for Pain. Active ondansetron (Zofran) 4 mg Tablet Take 1 Tablet (4 mg) by mouth every 6 hours as needed for Nausea. 15 Tablet 09/19/2020 11:40 AM CDT 09/19/2020 Active oxyCODONE-aceta minophen (Percocet) 10-325 mg TabletIndicatio ns:Status post reverse total shoulder replacement, left Take 1 Tablet by mouth every 4 hours as needed for Pain, Moderate or Pain, Severe. Max Daily Amount: 6 Tablets 42 Tablet 09/19/2020 11:40 AM CDT 09/19/2020 Active Active Problems Problem Noted Date Diagnosed Date Diverticulosis 09/07/2020 Insomnia 09/07/2020 Traumatic complete tear of left rotator cuff Former smoker, stopped smoking in distant past 0 09/07/2020 Preop general physical exam Preoperative testing Family History Medical History Relation Name Comments Healthy Daughter Lung Cancer Father Metastatic Cancer Mother Abdominal Osteoporosis Mother No Known Problems Sister 1 No Known Problems Sister 2 Healthy Son Relation Name Status Comments Brother none Daughter Alive Father Mother (Age 81) Sister 1 Alive Sister 2 Alive Son Alive Social History Tobacco Use Types Packs/Day Years Used Date Smoking Tobacco: Former Cigarettes 1 30 1 2009 Smokeless Tobacco: Never Alcohol Use Standard Drinks/Week Comments Yes 4 (1 standard drink = 0.6 oz pur e alcohol) Sex and Gender Information Value Date Recorded Sex Assigned at Not on file Legal Sex Male 10:51 AM CDT Gender Identity Not on file Sexual Orientation Not on file Last Filed Vital Signs Vital Sign Reading Time Taken Comments Blood Pressure 123/81 2020 9:56 AM CDT doctor informed Pulse 89 2020 9:56 AM CDT Temperature 36.2 C (97.2 F) 09/19/2020 10:28 AM CDT Respiratory Rate 20 09/19/2020 10:2 0 AM CDT Oxygen Saturation 94% 09/19/2020 12: 00 PM CDT Inhaled Oxygen Concentration - - Weight 59 kg (130 lb) 2020 9:56 AM CDT Height 167.6 cm (5' 6 ) 2020 9:56 AM CDT Body Mass Index 20.98 2020 9:56 AM CDT Plan of Treatment Health Maintenance Due Date Last Done Comments DTAP/TDAP/TD VACCINES (1 - Tdap) 1980 COLORECTAL SCREENING 2006 Colorectal Cancer Screening 2006 FIT-DNA Q 3 years 2006 FIT/FOBT Q 1 year 2006 Flex Sig/CT Colonography Q 5 years 2006 ZOSTER VACCINE (1 of 2) 10/07/2011 INFLUENZA VACCINE (#1) 2024 RSV VACCINE (60+ or ) (1 - 1-dose 75+ series) 2036 Medical Devices Implanted Type Area Account Processor Device Identifier Shelf Expiration Date Model / Serial / Lot Screw Shadia Ns 5x22mm Aequalis [id number] - [id number] Implanted:Qty: 1 on 09/19/2020 by Francisco Grant MD at [facility] Left: Shoulder [employer] 09/19/2021 [id number] / / [id number] Screw Shadia Ns 5x26mm Aequalis [id number] - [id number] Implanted:Qty: 1 on 09/19/2020 by Francisco Grant MD at [facility] Screw Left: Shoulder [employer] 09/19/2021 [id number] / / [id number] Screw Glenoid Baseplate 6.5x30mm [id number] - [id number] Implanted:Qty: 1 on 09/19/2020 by Francisco Grant MD at [facility] Screw Left: Shoulder [employer] 09/19/2021 [id number] / / [id number] Glenosphere Rvrs Shldr 39mm [id number] - [id number] Implanted:Qty: 1 on 09/19/2020 by Francisco Grant MD at [facility] Shoulder Left: Shoulder [employer] [id number] 07/15/2025 [id number] / Baseplate Glenoid Aequalis 25mm Shoulder Rev [id number] - [id number] Implanted:Qty: 1 on 09/19/2020 by Francisco Grant MD at [facility] Shoulder Left: Shoulder [employer] [id number] 07/15/2025 [id number] / Tray Hum Ascend Flex Ecc Rev [id number] - [id number] Implanted:Qty: 1 on 09/19/2020 by Francisco Grant MD at [facility] Shoulder Left: Shoulder [employer] [id number] 06/10/2025 [id number] / / Insert Hum Ascnd Flx Rvrs +6 39mm [id number] - [id number] Implanted:Qty: 1 on 09/19/2020 by Francisco Grant MD at [facility] Shoulder Left: Shoulder [employer] [id number] 05/10/2025 [id number] / / Stem Hum Ascnd Flx Ptc Std Sz4b [id number] - [id number] Implanted:Qty: 1 on 09/19/2020 by Francisco Grant MD at [facility] Shoulder Left: Shoulder [employer] [id number] 07/19/2025 [id number] Spine-09/19/2016 Implanted:07/2016 (Quantity not on file) Spine Description:Cervical spine f usion Insurance BC RX [facility] [employer] Advance Directives For more information, please contact: [phone] * Full Code (Latest Code Status on File) Date Activated Date Inactivated Comments 09/19/2020 6:41 AM 09/19/2020 3:09 PM Care Teams Cso Relationship Specialty [place] [address] [place] [phone] PCP - General Family Practice 04/05/20
--- OUTSIDE RECORDS SUMMARY | 2025-02-05 13:24 | XMS_ITS ---
Author Organization [facility] Address [address] [place] [address] Care Team Providers Care Boatswains Mate Name Role Phone Balta Encarnacion DO Primary Care Provider [phone] Prostate Cancer Status:Enrolled (Active) Start date:01/22/2025 Enrollment date:01/22/2025 Enrollment reason:Conversion Current support & services provided:Clinical Management, Refill Management, Benefits and PA Management, Financial Assistance Linked medications:abiraterone acetate (Active) Overview Conversion Continued Care and Services Coordination
--- OUTSIDE RECORDS SUMMARY | 2025-02-05 13:24 | XMS_ITS ---
Author Organization [facility] Address [address] [facility] [place] [address] Care Team Providers Care Aircraft Armament Mechanic Name Role Phone Balta Encarnacion DO Primary Care Provider [phone] Active Problems Problem Noted Date Diagnosed Date Prostate cancer 08/18/2024 Cancer, metastatic to bone 08/18/2024 Diverticulosis 09/07/2020 Traumatic complete tear of left rotator cuff Insomnia 09/07/2020 Former smoker, stopped smoking in distant past 0 09/07/2020 Preoperative testing Preop general physical exam Current Treatment and Therapy Plans Firmagon 240mg load then OP ONC LEUPROLIDE (ELIGARD) 22.5 MG SUBCUTANEOUS EVERY 3 MONTHS* Plan Start Date:08/26/2024 Plan Provider:Chrissie Wiggins MD Linked Problems Prostate cancer (CMS/HCC) Treatment Medications degarelix (FIRMAGON)leuproli de acetate (ELIGARD) OP ONC DENOSUMAB (XGEVA) FOR BONE METASTASIS* Plan Start Date:12/23/2024 Plan Provider:Chrissie Wiggins MD Linked Problems Cancer, metastatic to bone ( CMS/HCC)Prostate cancer (CMS/HCC) Treatment Medications No medications scheduled. OP ONC PROSTATE_DOCETAXEL_EVERY 21 DAYS X 6 WITH OR WITHOUT PREDNISONE AND WITH OR WITHOUT ORAL ANTIANDROGEN* Plan Start Date:08/18/2024 Plan Provider:Chrissie Wiggins MD Linked Problems Cancer, metastatic to bone ( CMS/HCC)Prostate cancer (CMS/HCC) Treatment Medications Current Day (Day 1 , Cycle 9 - Planned for 02/17/2025) Next Day (Day 1, Cycle 10 - Planned for 03/19/2025) DOCEtaxel (TAXOTERE) IVPB No medications schedul ed. No medications scheduled. Past Treatment and Therapy Plans ONCOLOGY THERAPY PLAN Plan Name Start Date Discontinue Date Treatment Medications Discontinue Reason Plan Provider OP ONC ZOLEDRONIC ACID 4 MG (ZOMETA) FOR BONE METASTASIS OR MULTIPLE MYELOMA 12/16/2024 12/23/2024 No medications scheduled. Other Chrissie Wiggins MD Lifetime Dose Tracking * Chemical Lifetime Dose Automatic Entry Manual Entr y Effective Dose 23.7 mSv 13.1 mSv 10.6 mSv Total DLP 688.24 DLP 191.24 DLP 497 DLP CTDIvol Max 29.7 mGy 5.7 mGy 24 mGy CTDIvol Min 29.7 mGy 5.7 mGy 24 mGy
[2025-02-05 13:49] VITALS: BP 156/96; PULSE 80; RESP 16; TEMP 36.3; O2SAT 99; BMI 20.9
--- NOTE | 2025-02-05 13:56 | ECG_ITS ---
[facility] Test Date: 2025-02-05 Pat Name: Efe Tamayo Department: Room: Gender: Male Tail Board Worker: : 1960 Requested By: Janice Díaz Order Number: [id number] Js MD: Poli Kapoor M.D. Measurements Intervals [place] Rate: 68 P: 36 GA: 151 QRS: 26 QRSD: 84 T: 27 QT: 382 QTc: 406 Interpretive Statements SINUS RHYTHM POSSIBLE LEFT ATRIAL ENLARGEMENT [-0.1mV P-WAVE IN V1/V2] No previous ECG available for comparison Electronically Signed On 02-06-2025 13:06:07 CDT by Poli Kapoor M.D. [email or web address]
--- NOTE | 2025-02-05 14:11 | CT_ITS ---
WS: [id number] CT HEAD NONCONTRAST HISTORY: lightheadiness TECHNIQUE: Contiguous axial imaging performed through the brain. Bone and soft tissue windows. Sagittal and coronal reformats reviewed. All CT scans at [facility] use at least one of these dose optimization techniques: automated exposure control; mA and/or kV adjustment per patient size (includes targeted exams where dose is matched to clinical indication); or iterative reconstruction. DLP: 1088.21 mGy.cm COMPARISON: None available. No acute intracranial hemorrhage, midline shift or mass effect. Mild atrophy. Prior lacunar infarcts external capsules. No large infarct. Ventricles: Normal size with no hydrocephalus. No intra displacement the cerebellar tonsils. Paranasal sinuses: As visualized are clear. Mastoid air cells: Well pneumatized. Calvarium and scalp: Skull is intact with no soft tissue edema or swelling. CT/CT head wo con* [id number] IMPRESSION: 1. No acute intracranial hemorrhage or edema. 2. Small lacunar infarcts in the external capsules. 3. Mild atrophy and small vessel disease.
--- NOTE | 2025-02-05 14:12 | W.ED.DIZZY ---
HPI - Dizziness General: Chief Complaint: Dizziness Stated Complaint: high bp Time Seen by Provider: 02/05/25 14:06 Source: patient Mode of arrival: ambulatory Limitations: no limitations History of Present Illness: HPI Narrative: 64-year-old male states that he has a history of prostate cancer with mets to the bone states he does take hormone replacement gives him hot flashes at times. He states he was playing with his grandkids today at 11 and got a hot flash states then started feel little lightheaded. I did ask him specifically and he said yes he felt lightheaded did not have any vertigo. He states that he checked his blood pressure and it was elevated does not have a history of high blood pressure he denies any headaches denies any slurred speech denies any change in his ambulation. Associated symptoms: Denies chest pain, chills, headache(s), nausea or vomiting Related Data Home Medications ?Medication ?Instructions ?Recorded ?Confirmed abiraterone 250 mg tablet 1,000 mg PO QAM 02/05/25 02/05/25 hydrocodone 5 mg-acetaminophen 325 1 tab PO Q8H PRN Pain 02/05/25 02/05/25 mg tablet prednisone 5 mg tablet 5 mg PO BID 02/05/25 02/05/25 prochlorperazine maleate 10 mg 10 mg PO Q6H PRN Nausea And 02/05/25 02/05/25 tablet Vomiting Previous Rx's ?Medication ?Instructions ?Recorded gabapentin 300 mg capsule 600 mg (2 x 300 mg) PO TID 10/02/24 neuropathy #540 caps Allergies Allergy/AdvReac Type Severity Reaction Status Date / Time celecoxib (From Celebrex) Allergy Unknown Verified 02/05/25 13:59 Review of Systems Const: Denies: fever(s), chills, body aches or change in appetite Eyes: Denies: blurry vision or eye discomfort ENMT: Denies: throat pain or dental pain Card: Denies: chest pain Resp: Denies: dyspnea GI: Denies: abdominal pain, nausea, vomiting or diarrhea Musc: Denies: neck pain or back pain Neuro: Denies: headache(s) PFSH ED PFSH: Surgical History (Updated 04/30/23 @ 10:15 by Balta Encarnacion DO) History of carpal tunnel release Social History Smoking and tobacco/nicotine status: former use of tobacco/nicotine Alcohol intake: current Alcohol intake frequency: few times a month Alcohol type: beer Substance/Drug Use: never Physical Exam Const: COMMON NORMALS: no acute distress, patient oriented x3 and healthy appearing HENMT: COMMON NORMALS: normocephalic and atraumatic HEAD & SCALP: normocephalic and atraumatic Eye: COMMON NORMALS: Equal, round and reactive pupils present and EOMs intact bilaterally PUPIL: Yes Equal, round and reactive pupils present OTHER: No nystagmus noted Neck/C-Spine: COMMON NORMALS: full ROM and supple Chest: COMMONS NORMALS: normal inspection of the chest and normal palpation of entire chest wall Resp: COMMON NORMALS: normal respiratory effort, No retractions, No use of accessory muscles and clear to auscultation bilaterally AUSCULTATION: clear to auscultation bilaterally Cardio: COMMON NORMALS: regular rate, regular rhythm and No murmurs present (Cardio) RATE: regular rate RHYTHM: regular rhythm GI: COMMON NORMALS: Normal to inspection, nondistended, normoactive bowel sounds present, Soft to palpation, non-tender and no masses PALPATION: Yes Soft to palpation Extremity: COMMON NORMALS: normal to inspection and full ROM Neuro: COMMON NORMALS: patient oriented x3, moves all extremities and no focal motor deficits CRANIAL NERVES: Yes CN normal except as noted SPEECH: speech normal GAIT: Yes Normal gait present MOTOR EXAM: 5/5 motor strength present throughout Psych: COMMON NORMALS: mental status grossly normal, Normal thought process present and cooperative THOUGHT PROCESS: Normal thought process present Skin: COMMON NORMALS: no rashes or lesions noted and no wounds GENERAL SKIN EXAM: no rashes or lesions noted Course Vital Signs: Vital signs: Vital Signs Temperature 97.3 F L 02/05/25 13:49 Pulse Rate 76 02/05/25 15:20 Respiratory Rate 16 02/05/25 13:49 Blood Pressure 147/96 02/05/25 15:20 Pulse Oximetry 94 02/05/25 15:20 Oxygen Delivery Me thod Room Air 02/05/25 13:49 MDM - Dizziness Medical Decision Making Patient presents with hypertension along with some lightheadedness. Patient never had a syncopal event no chest pain head CT blood work are all normal. He feels much improved after his blood pressure has improved. No signs of stroke here NIH was 0. Did inform him of his CT findings along with blood work. I informed him he is to take a log of his blood pressure over the next week follow-up with PCP he is to return if worsening he understands agrees to plan Medical Records I reviewed the patient's medical records. Lab Data I reviewed the patient's lab results. 02/05/25 14:24 02/05/25 14:[address] 02/05/25 14:11 IMPRESSION: 1. No acute intracranial hemorrhage or edema. 2. Small lacunar infarcts in the external capsules. 3. Mild atrophy and small vessel disease. Laboratory Results WBC 6.03 10^3/uL (3.29-11.43) 02/05/25 14:24 RBC 3.74 10^6/uL (3.85-5.65) L 02/05/25 14:24 Hgb 12.10 g/dL (11.27-16.99) 02/05/25 14:24 Hct 37.0 % (37-53) 02/05/25 14:24 MCV 98.9 fl (82-101) 02/05/25 14:24 MCH 32.4 pg (27-33) 02/05/25 14:24 MCHC 32.7 g/dL (30-55) 02/05/25 14:24 RDW 12.4 % (12.1-15.1) 02/05/25 14:24 Plt Count 224 10^3/cmm (157-399) 02/05/25 14:24 MPV 9.2 fL (7.4-10.4) 02/05/25 14:24 Neut % (Auto) 83.8 % 02/05/25 14:24 Lymph % (Auto) 11.8 % 02/05/25 14:24 [place] % (Auto) 3.6 % 02/05/25 14:24 Eos % (Auto) 0.3 % 02/05/25 14:24 Baso % (Auto) 0.2 % 02/05/25 14:24 Neut # (Auto) 5.05 10^3/uL (1.8-7.7) 02/05/25 14:24 Lymph # (Auto) 0.7 10^3/uL (0.8-4.8) L 02/05/25 14:24 [place] # (Auto) 0.2 10^3/uL (0.2-0.9) 02/05/25 14:24 Eos # (Auto) 0.0 10^3/uL (0.0-0.8) 02/05/25 14:24 Baso # (Auto) 0.0 10^3/uL (0.0-0.1) 02/05/25 14:24 Nucleated RBC % (auto) 0 % 02/05/25 14:24 Nucleated RBCs # 0.0 /100WBC 02/05/25 14:24 Sodium 142 mmol/L (136-145) 02/05/25 14:24 Potassium 4.1 mmol/L (3.5-5.1) 02/05/25 14:24 Chloride 104 mmol/L (98-107) 02/05/25 14:24 Carbon Dioxide 27 mmol/L (22-29) 02/05/25 14:24 Anion Gap 15.1 (5-19) 02/05/25 14:24 BUN 16 mg/dL (8-23) 02/05/25 14:24 Creatinine 0.6 mg/dL (0.7-1.2) L 02/05/25 14:24 GFR Calculation 136.1 mL/min (90-130) H 02/05/25 14:24 Glucose 115 mg/dL (65-115) 02/05/25 14:24 Calculated Osmolality 296 mOsm/kg (285-295) H 02/05/25 14:24 Calcium 9.1 mg/dL (8.5-10.5) 02/05/25 14:24 Total Bilirubin 0.7 mg/dL (0.15-1.2) 02/05/25 14:24 AST 18 U/L (0-40) 02/05/25 14:24 ALT 18 U/L (0-41) 02/05/25 14:24 Alkaline Phosphatase 65 U/L (40-130) 02/05/25 14:24 Total Protein 6.6 g/dL (6.6-8.7) 02/05/25 14:24 Albumin 4.6 g/dL (3.5-5.2) 02/05/25 14:24 Globulin 2.0 g/dL (1.3-4.6) 02/05/25 14:24 All radiology interpretation(s) finalized by discharge EKG Data EKG 1: I personally reviewed and interpreted this EKG as follows: EKG interpretation date: 02/05/25 EKG interpretation time: 13:56 Interpretation: nsr hr [address] elevation qrs 84 qtc 399 Discharge Plan Discharge Patient Disposition: Home Clinical Impression: Hypertension, Light headedness Condition: Stable Prescriptions: No Action gabapentin 300 mg capsule 600 mg PO TID Qty: 540 1RF Patient Comments: mere states he takes 1 in the Am , 1 at noon , and 2 at bedtime hydrocodone-acetaminophen 5-325 mg tablet 1 tab PO Q8H PRN (Reason: Pain) prednisone 5 mg tablet 5 mg PO BID prochlorperazine maleate 10 mg tablet 10 mg PO Q6H PRN (Reason: Nausea And Vomiting) abiraterone 250 mg tablet 1,000 mg PO QAM Discharge Orders: Discharge ED (Routine); Ordered 02/05/25 Ordered By: Janice Díaz Referrals: Balta Encarnacion DO [Primary Care Provider, [facility]] - 4-7 days Discharge Diet: Advance as tolerated Discharge Activity: Resume usual activity Patient Instructions: Hypertension (ED) Print Language: Croatian Coding Level of Care Code ED Vessel Welder for Ana Luisa Waite NIH stroke score NIHSS Level Of Consciousness - 1a: 0 Level Of Consciousness Questions - 1b: Both Correct Level Of Consciousness Commands - 1c: Both Correct Best Gaze - 2: Normal Visual Boss - 3: No Visual Loss Facial Palsy - 4: Normal Motor Arm Right - 5: No Drift Motor Arm Left - 5: No Drift Motor Leg Right - 6: No Drift Motor Leg Left - 6: No Drift Limb Ataxia - 7: Absent Sensory - 8: Normal Best Language - 9: No Aphasia Dysarthia - 10: Normal Extinction And Inattention - 11: 0 Score Total Score: 0
[2025-02-05 14:30] LABS: Hematocrit 37.0 % (37-53); Hemoglobin 12.10 g/dL (11.27-16.99); Mean Corpuscular HGB Conc 32.7 g/dL (30-55); Mean Corpuscular Hemoglobin 32.4 pg (27-33); Mean Corpuscular Volume 98.9 fl (82-101); Nucleated Red Blood Cells % 0 %; Platelet Count 224 10^3/cmm (157-399); Red Blood Count 3.74 10^6/uL (3.85-5.65); White Blood Count 6.03 10^3/uL (3.29-11.43)
[2025-02-05] MEDS: hyDRALAzine 20 mg/mL INJ 1 mL 10 MG IVP (14:34)
[2025-02-05 14:40] VITALS: BP 156/92; PULSE 71; O2SAT 98
[2025-02-05 14:47] LABS: Alanine Aminotransferase 18 U/L (0-41); Albumin Level 4.6 g/dL (3.5-5.2); Alkaline Phosphatase 65 U/L (40-130); Anion Gap 15.1 (5-19); Aspartate Amino Transferase 18 U/L (0-40); Blood Urea Nitrogen 16 mg/dL (8-23); Calcium 9.1 mg/dL (8.5-10.5); Carbon Dioxide 27 mmol/L (22-29); Chloride 104 mmol/L (98-107); Creatinine Clr Calc Pharmacy 110.2718; Globulin 2.0 g/dL (1.3-4.6); Glucose 115 mg/dL (65-115); Osmolality Calculated 296 mOsm/kg (285-295); Potassium 4.1 mmol/L (3.5-5.1); Sodium 142 mmol/L (136-145); Total Protein 6.6 g/dL (6.6-8.7)
[2025-02-05 15:20] VITALS: BP 147/96; PULSE 76; O2SAT 94
[2025-02-05 16:01] VITALS: BP 147/96; PULSE 71; O2SAT 97
== END 2025-02-05 16:06 | disposition home or self-care (01) ==
PROVIDERS: Emergency Provider Emergency Medicine; PCP Family Medicine
DX: I10 Essential (primary) hypertension (principal); R42 Dizziness and giddiness; Z87.891 Personal history of nicotine dependence; Z85.46 Personal history of malignant neoplasm of prostate
CPT/HCPCS: 36415; 70450; 80053; 85025; 93005; 96374; 99285; J0360